=== PATIENT | female | born 1980 | race African-American/Black ===

== ENCOUNTER 2018-05-02 19:48 | Emergency (ER) | payer MEDICAID ==
[~2018-05-02] VITALS: Ht 162.6 cm; Wt 115.7 kg
[2018-05-02 20:30] VITALS: BP 127/86
--- NOTE | 2018-05-02 20:56 | Emergency Room Report ---
History of Present Illness General Chief Complaint: Flu Like Symptoms Source: Patient Present Illness HPI The patient presents with a sore throat and left ear pain. This is been going on for 2 days. She tried taking TheraFlu last night. It didn't help. She feels her throat is on fire. She also has nasal congestion. She also complains about body aches. There is no headache per se. No nausea vomiting diarrhea. Pain is rated 5/10 mostly her throat. It's worse when she swallows. She denies any chest pain, productive cough and wheezing. Last menstrual period was the beginning the month and normal for her. She denies dysuria. No rash. Allergies: Coded Allergies: CHEESE (Unverified Allergy, Unknown, 05/02/18) Dust (Unverified Allergy, Unknown, 05/02/18) GRASS POLLEN (Unverified Allergy, Unknown, 05/02/18) STRAWBERRY (Unverified Allergy, Unknown, 05/02/18) Uncoded Allergies: GRASS, CHEEZE,DUST, STRAWBERRIES (Allergy, Unknown, 05/02/18) Patient History Past Medical History: see triage record Social History: Denies: smoking Social History Narrative caregiver Last Menstrual Period: apr 24 Now: No Reviewed Nursing Documentation: PMH: Agreed; PSxH: Agreed Nursing Documentation-PMH Hx Asthma: Yes - asthma, bnronchitis Review of Systems All Other Systems: negative except mentioned in HPI Physical Exam Vital Signs Date Time Temp Pulse Resp B/P (MAP) Pulse Ox O2 Delivery O2 Flow Rate FiO2 05/02/18 20:19 99.0 90 16 92/ 97 Room Air Sp02 EP Interpretation: reviewed, normal General Appearance: well appearing, no apparent distress, GCS 15 Head: normocephalic, atraumatic Eyes: bilateral eye normal inspection, bilateral eye PERRL ENT: moist mucus membranes, pharyngeal erythema, other - Left TM with erythema and bulging right normal Neck: full range of motion, supple Respiratory: lungs clear, normal breath sounds, no respiratory distress, speaking full sentences Cardiovascular #1: regular rate, rhythm Cardiovascular #2: 2+ radial (R) Gastrointestinal: normal inspection, normal bowel sounds, non tender Genitourinary: no CVA tenderness Musculoskeletal: digits/nails normal, gait/station normal Neurologic: alert, oriented x3, normal gait, grossly normal Psychiatric: mood/affect normal Skin: no rash Medical Decision Making Diagnostic Impression: Primary Impression: Left otitis media Qualified Codes: H66.002 - Acute suppurative otitis media without spontaneous rupture of ear drum, left ear ER Course Patient presents with sore throat and left ear pain and body aches. Differential includes viral syndrome, otitis media, pharyngitis amongst others. Based on the physical exam antibiotics are indicated. In addition to that a decongestant will be prescribed. Antibiotics began here. Patient has Chloraseptic, Tylenol and Advil. Patient is stable for outpatient observation and treatment. Last Vital Signs Date Time Temp Pulse Resp B/P (MAP) Pulse Ox O2 Delivery O2 Flow Rate FiO2 05/02/18 21:03 98.6 84 16 102/86 97 Room Air Status: improved Disposition: HOME, SELF-CARE Condition: Improved Scripts Chlorpheniramine Maleate (CHLOR-TRIMETON) 4 Mg Tablet 4 MG PO Q6HR, #12 TAB Prov: Lester Sam MD 05/02/18 Amoxicillin/Potassium Clav 500-125 Tablet* (AUGMENTIN 500-125 TABLET*) 1 Each Tablet 1 TAB ORAL THREE TIMES A DAY, #20 TAB Prov: Lester Sam MD 05/02/18 Lester Sam MD May 02, 2018 20:56
[2018-05-02] MEDS ORDERED: AUGMENTIN 500-1 EACH ORAL (20:59)
[2018-05-02] MEDS ORDERED: CHLOR-TRIMETON4 MG PO (20:59)
[2018-05-02 21:03] VITALS: BP 102/86
== END 2018-05-02 21:03 | disposition home or self-care (01) ==
LOC: EMR 20:56
DX: H66.92 Otitis media, unspecified, left ear (principal); J45.909 Unspecified asthma, uncomplicated
CPT/HCPCS: 99282